=== PATIENT | female | born 1955 | race Caucasian/White ===

== ENCOUNTER 2024-10-29 07:52 | Day surgery (SDC) | payer MEDICARE, MEDICAID, SELFPAY ==
--- NOTE | 2024-10-29 06:30 | W.ANESPRE ---
General Info Date of Service Date Performed: 10/29/24 Height: 5 ft Weight: 65.771 kg Body Mass Index (BMI): 28.3 Surgical Procedure: Operation Date: 10/29/24 10:40 Proposed Procedure Side Surgeon p Cataract Extraction with IOL Implant Right Austin Anderson MD Meds Allergies and Home Medications Allergies Allergy/AdvReac Type Severity Reaction Status Date / Time amoxicillin Allergy Intermediate Other (See Verified 10/29/24 08:41 Comment) acetaminophen AdvReac Intermediate Other (See Verified 10/29/24 08:41 Comment) Home Medication ?Medication ?Instructions ?Recorded sertraline 25 mg tablet 25 mg PO HS 10/26/24 Current Visit Medications: Current Medications Generic Name Dose Route Start Last Admin Trade Name Freq PRN Reason Stop Dose Admin Acetaminophen 1,000 mg 10/29/24 06:20 Acetaminophen 500 Mg Tab PO 11/28/24 06:19 Q4H PRN PRN Balanced Salt Solution 500 ml 10/29/24 06:20 Balanced Salt Soln.-Plus 500 Ml Bag OP 11/28/24 06:19 DIRECTED [facility] Miscellaneous Medication 0 ml 10/29/24 06:20 Prednisolone 1%, Moxifloxacin 0.5%, Bromfenac 0.09% 5.6ml Btl OD 11/28/24 06:19 DIRECTED [facility] Miscellaneous Medication 0 ml 10/29/24 06:20 Tropicam./Phenyleph. (1/2.5%) 5 Ml Btl OD 11/28/24 06:19 DIRECTED DAVE Tetracaine HCl 0 ml 10/29/24 06:20 Tetracaine 0.5% 4 Ml Btl OD 11/28/24 06:19 DIRECTED DAVE PFSH Medical History Medical History (Updated 10/29/24 @ 08:45 by Esmer Ferreira) Macular pucker, right eye Acute bacterial bronchitis History (07/2023) Menopause Acquired hyperbilirubinemia history Hyperlipemia Transaminitis Nonorganic sleep disorder Low back pain Endometrial hyperplasia Elevated liver enzymes Depressive disorder Cholestatic hepatitis Anemia Surgical History Surgical History (Updated 10/29/24 @ 08:44 by Esmer Ferreira) H/O detached retina repair left eye 2010 History of ERCP with sphincterotomy and stent placement History of eye surgery History of section History of colonoscopy Tobacco Smoking/Tobacco Use Status: Never Passive smoking exposure: Yes Alcohol Alcohol Intake: current Alcohol intake frequency: holidays/special occasions only Substance Use Substance use: Never Substance use type: does not use Vital Signs and Lab Results Lab Results Blood Type / Crossmatch: No Data to Display Complete Blood Count: No Data to Display Complete Metabolic Panel: No Data to Display Liver Function Panel: No Data to Display Coagulation Panel: No Data to Display Cardiac Panel: No Data to Display Arterial Blood Gas: No Data to Display Venous Blood Gas: No Data to Display Pancreas Panel: No Data to Display Thyroid Panel: No Data to Display Infectious Disease: No Data to Display Blood Cultures: No Data to Display Toxicology Panel: No Data to Display Anesthesia Assessment and Plan Anesthesia History Personal History: No History of Anesthesia Complications Family History: No Family History of Anesthesia Complications Exercise Tolerance Exercise Tolerance: Metabolic Equivalents>4 Cardiac & Pulmonary Exam Cardiac Exam: Normal S1/S2 Heart Sounds Pulmonary Exam: Clear Bilateral Breath Sounds Implantable Cardiac Device Does patient have a Pacemaker or an ICD?: No Airway Exam Known Difficult Airway: No Mallampati Class: 3 Mouth Opening: Normal (> 3cm) Thyromental Distance: Greater than 3 cm Neck Range of Motion: Full ROM Neck Circumference: Normal Teeth Condition: Normal Dentition and Removable Dentures/Plates Upper ASA Classification ASA Score: ASA 2 Emergency Case?: No NPO Status NPO Status: NPO Clears >2 hours, Solids >8 hours Anesthesia Plan Resuscitation Status: Full Code Anesthesia Technique: MAC Anesthesia Airway Planned: Natural Airway Monitors Used: Standard Monitors Preoperative Comments:: 69 yo female for cataract. Sig PMHx: LBP, depression, Discussed MAC, would like MKO.
[2024-10-29 08:21] VITALS: BMI 28.3
[2024-10-29 08:45] VITALS: BP 112/59; PULSE 67; RESP 16; TEMP 36.7; O2SAT 96
[2024-10-29] MEDS: Tropicam./Phenyleph. (1/2.5%) 5 ML BTL OD ×3 (08:58→09:09)
[2024-10-29] MEDS: Lidocaine 1% Pres-Free 5 ML VIAL (09:58)
[2024-10-29] MEDS: Duovisc Viscoelastic System EACH 1 EACH (09:59)
[2024-10-29] MEDS: Moxifloxacin-PF 1 MG/ML VIAL (09:59)
[2024-10-29] MEDS: Phenylephrine/Lidocaine (15/10) MG/ML 1 ML VIAL (10:00)
[2024-10-29] MEDS: Trypan Blue 0.06% 0.5 ML SYR (10:00)
[2024-10-29] MEDS: Povidone-Iodine Ophth 30 ML BTL (10:00)
[2024-10-29] MEDS: Balanced Salt Soln.-PLUS 500 ML BAG OP (10:01)
[2024-10-29] MEDS: Prednisolone 1%, Moxifloxacin 0.5%, Bromfenac 0.09% 5.6ML BTL OD (10:01)
[2024-10-29] MEDS: Tetracaine 0.5% 4 ML BTL OD (10:02)
[2024-10-29 10:30] VITALS: BP 119/62; PULSE 70; RESP 18; TEMP 36.8; O2SAT 95
--- NOTE | 2024-10-29 10:32 | W.PM.DSUDISC ---
Date of service: 10/29/24 Discharge Plan Disposition Patient Disposition: Home Discharge Details Attending Provider: Austin Anderson Primary Care Provider: JOHN SANTOS Home Meds and New Rx's Prescriptions: No Action sertraline 25 mg tablet 25 mg PO HS Discharge Instructions Stand Alone Forms: DSU Post-Op Cataract, Cirilo Garduno (DSU) Discharge Orders Discharge Orders: Discharge Order (Routine); Ordered 10/29/24 Ordered By: Austin Anderson DS: Diagnosis Discharge Diagnosis (1) Nuclear age-related cataract, right eye: Status: Resolved (2) History of vitrectomy: Status: Chronic
--- NOTE | 2024-10-29 10:33 | ROE_ITS ---
Operative Note Operative Note PRE-OP DIAGNOSIS: Dense nuclear cataract, right eye History of pars plana vitrectomy, right eye POST-OP DIAGNOSIS: same PROCEDURE: Cataract extraction using phacoemulsification with intraocular lens implant, right eye Insertion of capsular tension ring, right eye SURGEON: Austin Anderson ANESTHESIA TYPE: Local By Surgeon and MAC Refer to Anesthesia Record ESTIMATED BLOOD LOSS: 0 PATHOLOGY: none sent COMPLICATIONS: None Patient was transported to: same day Patient's condition: stable Implants: Mynor Clareon [id number] Morcher Type 15A capsular tension ring Indications: Progressive decreased vision due to cataract, right eye Findings: Moderate to severe diffuse generalized zonular laxity Procedure Description: CATARACT SURGERY OPERATIVE REPORT PREOPERATIVE DIAGNOSIS: Dense nuclear cataract, right eye History of pars plana vitrectomy, right eye POSTOPERATIVE DIAGNOSIS: Same OPERATION: Cataract extraction using phacoemulsification with posterior chamber intraocular lens implant, right eye. Insertion of Morcher Type 15A capsular tension ring, right eye IOL: IOL Electronic Prepress Technician/Model: Mynor Clareon [id number] IOL Power: + 14.5 diopters IOL Serial Number: [id number] Optic Diameter: 6.0mm Haptic/Overall Diameter: 13.0mm PHACO INFO: Mynor Centurion Vision System with OZil and Active Fluidics Cumulative Dispersed Energy (CDE): 17.04 seconds SURGEON: Austin Anderson MD, KITA ANESTHESIA: Monitored Anesthesia Care (MAC), with local sub-tenon's anesthetic infiltration COMPLICATIONS: None SPECIMENS: None INDICATIONS FOR PROCEDURE: The patient is a 69-year-old lady who previously undergone partial plantar vi trectomy in the right eye she has developed a dense nuclear cataract in the right eye and desires cataract surgery in attempt to improve and maximize her vision. The option of cataract surgery was offered to the patient and she wished to proceed. See office notes PROCEDURE: The correct surgical eye was identified and marked as the right eye and the pupil was dilated in the preoperative area using mydriatics and cycloplegics. The dilated pupil size was 6.0 mm. Oral sedation was administered in the form of an Imprimis MKO Melt (midazolam 3mg/ketamine 25mg/ondansetron 2m g). The patient was brought to the operating room where cardiopulmonary monitoring was instituted and surgical time-out was performed, confirming the correct operative eye and IOL power. Topical anesthesia was administered and ophthalmic povidone-iodine 5% was instilled into the conjunctival fornices. The leigh-ocular area was prepped with Betadine 10% solution and draped in the usual sterile fashion for intraocular surgery, including an aperture drape. A Tegaderm transparent film dressing was cut in half and used to cover the lashes and lid margins. Care was taken to sequester the lashes and lid margins under the Tegaderm dressing. A lid speculum was placed between the lids of the operative eye and the Mynor LuxOR Revalia operating microscope was maneuvered into position. Otf scissors were then used to make a conjunctival buttonhole approximately 6mm posterior to the limbus in the inferonasal quadrant. Blunt dissection was carried out to expose bare sclera, and a blunt-tipped sub-tenon?s anesthesia cannula was introduced and passed posteriorly along the globe where non- preserved plain lidocaine was injected into posterior sub-Tenon?s space. A sideport knife was used to make a paracentesis port. VisionBlue was injected into the anterior chamber and allowed to sit for 30 seconds. Intraocular phenylephrine/lidocaine was injected into the anterior chamber. The anterior chamber was then filled with viscoelastic. A keratome knife was used to construct a two--plane clear corneal tunnel extending 2.0mm into clear cornea. A flap was raised on the anterior capsule and capsulorhexis forceps were used to complete a continuous curvilinear capsulorhexis of 5.5 mm. Moderate to significant generalized zonular laxity was noted during capsulorrhexis creation. The anterior capsule was quite thin. Balanced salt solution was then used to perform cortical cleaving hydrodissection and nuclear hydrodelineation until the lens could be freely rotated within the capsular bag. The lens nucleus was then disassembled and removed within the capsular bag and iris plane using phacoemulsification. Residual cortical material was removed using the I/A handpiece. The posterior capsule was carefully polished to remove as much residual lens epithelial cells as safely possible. The capsular bag was then inflated and the anterior chamber deepened with cohesive viscoelastic. A Morcher Type 15A capsular tensioning was inserted into the capsular bag without difficulty. The lens implant described above was inserted into the capsular bag using the Mynor Autonome Injector. A Kuglen hook was used to dial the IOL into position. Residual viscoelastic was then removed first from posterior to the IOL, then from the anterior chamber using the I/A handpiece. The lens implant was noted to center nicely within the capsular bag. The incisions were stromally hydrated, and the anterior chamber was reformed using BSS. Then 0.5cc of moxifloxacin 1.0mg/ml were injected into the capsular bag and anterior chamber. The incisions were checked with a Weck spear and found to be secure. Several drops of ophthalmic povidone-iodine 5% were then applied to the eye followed by two drops of combination steroid/NSAID/antibiotic solution. The drapes were removed and a clear plastic protective eye shield was placed over the eye. The patient was then returned to Same Day Surgery in stable condition. Date of Procedure: 10/29/24
--- NOTE | 2024-10-29 10:39 | W.ANESPOSTOP ---
Postoperative Evaluation Date, Time and Location Date Performed: 10/29/24 Time Performed: 10:39 Patient Location: Day Surgery Unit Vital Signs Most Recent Imported Vital Signs: Most Recent Vital Signs Temp Pulse Resp BP Pulse Ox 36.8 C 70 18 119/62 95 10/29/24 10:30 10/29/24 10:30 10/29/24 10:30 10/29/24 10:30 10/29/24 10:30 Pain Score Most Recent Pain Score: Most Recent Pain Score Pain Level 0 10/29/24 10:30 Assessment Mental Status: Awake (Alert & Oriented to Patient Baseline) Airway and Respiratory Function: Patent airway with normal (patient baseline) respiratory exam Cardiovascular Function: Hemodynamically Stable Hydration Status: Adequately Hydrated Nausea & Vomiting: No Nausea or Vomiting Pain: Pt. Denies Any Pain Peripheral Nerve Block: Patient did not receive a nerve block
[2024-10-29 10:54] VITALS: BP 114/69; PULSE 76; RESP 16; TEMP 36.1; O2SAT 95
== END 2024-10-29 10:58 | disposition home or self-care (01) ==
PROVIDERS: PCP Family Medicine; Visit Provider Ophthalmology
PROC: (CPT 66982; principal; 2024-10-29 10:30)
DX: H25.11 Age-related nuclear cataract, right eye (principal)
CPT/HCPCS: 66982; 00123; V2632; J2003